=== PATIENT | female | born 1950 | race Caucasian/White ===

== ENCOUNTER 2020-05-18 10:51 | Emergency (ER) | payer MEDICARE, OTHER ==
[2020-05-18 11:10] VITALS: BP 123/53; PULSE 71
--- NOTE | 2020-05-18 11:29 | EDM.PDOC ---
ED HPI GENERAL MEDICAL PROBLEM - General Chief Complaint: Upper Extremity Injury/Pain Stated Complaint: R SHOULDER PAIN Time Seen by Provider: 05/18/20 10:59 Source of Information: Reports: Patient, RN Notes Reviewed History Limitations: Reports: No Limitations - History of Present Illness INITIAL COMMENTS - FREE TEXT/NARRATIVE: Patient is a 70-year-old female presenting to the emergency department with her with complaints of right shoulder pain. She describes tightness and shooting pain to her right shoulder rating into her right upper back. This morning she was unable to lift her arm, however she took Flexeril 10 mg as well as ibuprofen and Tylenol and states that the symptoms are improving. She is able to lift her arm at this time. She denies any known injury, however on Monday she was riding horse and states that she threw the saddle up on the horse a number of times. Symptoms began the next day. She states that she has had problems with pain to her right shoulder off and on for about the last 9 months. Denies any previous surgeries on the shoulder. She denies any chest pain or shortness of breath. Right Shoulder Pain Score (Numeric/FACES): 7 - Related Data Allergies Allergy/AdvReac Type Severity Reaction Status Date / Time environmental Allergy Itching Uncoded 05/18/20 11:10 Home Meds: Home Meds Levothyroxine 50 mcg PO DAILY 08/05/15 [History] Sertraline HCl [Zoloft] 20 mg PO DAILY 08/05/15 [History] Rosuvastatin [Crestor] 5 mg PO DAILY 05/18/20 [History] predniSONE [Prednisone] 20 mg PO ASDIRECTED #9 tablet 05/18/20 [Rx] Past Medical History HEENT History: Reports: Impaired Vision Cardiovascular History: Reports: High Cholesterol Respiratory History: Reports: Asthma Endocrine/Metabolic History: Reports: Hypothyroidism - Infectious Disease History Infectious Disease History: Reports: Novel Coronavirus - Past Surgical History GI Surgical History: Reports: Other (See Below) Other GI Surgeries/Procedures: anal canal repair Female Surgical History: Reports: Hysterectomy Musculoskeletal Surgical History: Reports: Other (See Below) Other Musculoskeletal Surgeries/Procedures:: bunion removal Social & Family History - Family History Family Medical History: No Pertinent Family History Cardiac: Reports: [place] Neurological: Reports: CVA Oncologic: Reports: Breast - Tobacco Use Tobacco Use Status *Q: Never Tobacco User Second Hand Smoke Exposure: No - Caffeine Use Caffeine Use: Reports: None - Recreational Drug Use Recreational Drug Use: No Review of Systems - Review of Systems Review Of Systems: See Below Constitutional: Reports: No Symptoms Eyes: Reports: No Symptoms Ears: Reports: No Symptoms Nose: Reports: No Symptoms Mouth/Throat: Reports: No Symptoms Respiratory: Reports: No Symptoms Cardiovascular: Reports: No Symptoms GI/Abdominal: Reports: No Symptoms Genitourinary: Reports: No Symptoms Musculoskeletal: Reports: Shoulder Pain (Right) Skin: Reports: No Symptoms Neurological: Reports: No Symptoms Psychiatric: Reports: No Symptoms ED EXAM, GENERAL - Physical Exam Exam: See Below General Appearance: Alert, WD/WN, No Apparent Distress Respiratory/Chest: No Respiratory Distress, Lungs Clear, Normal Breath Sounds, No Accessory Muscle Use, Chest Non-Tender Cardiovascular: Normal Peripheral Pulses, Regular Rate, Rhythm, No Edema, No Gallop, No JVD, No Murmur, No Rub Extremities: Normal Inspection, Limited Range of Motion (Able to lift arm to shoulder height. Further range of motion limited due to pain.), Other (Mild tenderness to palpation overlying the right AC joint and to the right trapezius muscle.) Neurological: Alert, Oriented, CN II-XII Intact, Normal Cognition, Normal Gait, Normal Reflexes, No Motor/Sensory Deficits Psychiatric: Normal Affect, Normal Mood Skin Exam: Warm, Dry, Intact, Normal Color, No Rash Course - Vital Signs Last Recorded V/S: Last Vital Signs Temp 97.3 F 05/18/20 11:08 Pulse 71 05/18/20 11:08 Resp 18 05/18/20 11:08 BP 123/53 L 05/18/20 11:08 Pulse Ox 95 05/18/20 11:08 - Re-Assessments/Exams Free Text/Narrative Re-Assessment/Exam: 05/18/20 12:05 X-ray of the right shoulder shows mild degenerative changes within the acromioclavicular joint. There is nothing acute otherwise appreciated. Patient does appreciate tenderness to palpation over the AC joint. States that she has a history of ulcers, therefore we will forego NSAIDs. I will send a short prescription for prednisone. She has Flexeril at home. She continues to have recurrence of pain in the shoulder, recommend follow-up with orthopedics. Discharge instructions as documented. Departure - Departure Time of Disposition: 12:06 Disposition: Home, Self-Care 01 Condition: Good Clinical Impression: Shoulder pain, right Qualifiers: Chronicity: acute Qualified Code(s): M25.511 - Pain in right shoulder - Discharge Information *PRESCRIPTION DRUG MONITORING PROGRAM REVIEWED*: No *COPY OF PRESCRIPTION DRUG MONITORING REPORT IN PATIENT KANDI: No Prescriptions: predniSONE [Prednisone] 20 mg PO ASDIRECTED #9 tablet Instructions: Shoulder Pain Referrals: Bonita Rosales [facility] [Primary Care Provider] - Forms: ED Department Discharge Additional Instructions: You were seen in the emergency department today for right shoulder pain. X-rays are completed and did show some degeneration of your acromioclavicular joint which corresponds with where your pain is located. You have been sent a prescription for prednisone to help decrease inflammation. Recommend that you continue to use the Flexeril every 6 hours as needed for muscle spasms. You may apply heat to the area intermittently as needed. If you continue to experience recurrence of right-sided shoulder pain, recommend follow-up with orthopedics. Return to ER as needed. Sepsis Event Note (ED) - Evaluation Sepsis Screening Result: No Definite Risk - Focused Exam Vital Signs: Vital Signs Temp Pulse Resp BP Pulse Ox 05/18/20 11:08 97.3 F 71 18 123/53 L 95
--- NOTE | 2020-05-18 11:52 | CR ---
Right shoulder: 3 views of the right shoulder were obtained. Comparison: No previous study. Slight degenerative change is seen within the superior acromioclavicular joint. Glenohumeral joint appears within normal limits. No acute fracture, dislocation or other bony abnormality is appreciated. Impression: 1. Mild degenerative change within the acromioclavicular joint. 2. Nothing acute is otherwise seen on right shoulder study. Diagnostic code #1
== END 2020-05-18 12:14 | disposition home or self-care (01) ==
LOC: JD.ED 10:51
DX: M25.511 Pain in right shoulder (principal); E78.00 Pure hypercholesterolemia, unspecified; J45.909 Unspecified asthma, uncomplicated; E03.9 Hypothyroidism, unspecified; Z91.048 Other nonmedicinal substance allergy status; Z79.899 Other long term (current) drug therapy
CPT/HCPCS: 73030-26-RT; 73030-RT; 99283; 99283-25

== ENCOUNTER 2021-02-22 14:58 | Emergency (ER) | payer MEDICARE ==
[2021-02-22 16:21] VITALS: BP 127/73; PULSE 55
--- NOTE | 2021-02-22 16:35 | EDM.PDOC ---
ED HPI GENERAL MEDICAL PROBLEM - General Chief Complaint: Lower Extremity Injury/Pain Stated Complaint: KNEE PAIN Time Seen by Provider: 02/22/21 16:12 Source of Information: Reports: Patient, RN Notes Reviewed History Limitations: Reports: No Limitations - History of Present Illness INITIAL COMMENTS - FREE TEXT/NARRATIVE: Patient is a 71-year-old female who presents to the ER for left knee pain and swelling. States that she does a lot of walking, she thinks she may have torn or hurt her meniscus a few years ago, and wonders if this did not flared up. She notes increased pain and swelling since last night. No numbness or tingling distal to the pain. There is visible swelling noted from left to right, which appears to be in the superior left knee. Patient can move her knee however it is very painful to do so. States that she can walk on the knee as well but has been painful to do so. Has been using Tylenol and ibuprofen for pain management. Patient denies any other sick-like symptoms, fever/chills, cough/shortness of breath, nausea/vomiting/diarrhea. 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, NSAIDS Left Knee Pain Score (Numeric/FACES): 7 - Related Data Allergies Allergy/AdvReac Type Severity Reaction Status Date / Time environmental Allergy Itching Uncoded 05/18/20 11:10 Home Meds: Home Meds Levothyroxine 50 mcg PO DAILY 08/05/15 [History] Sertraline HCl [Zoloft] 20 mg PO DAILY 08/05/15 [History] Rosuvastatin [Crestor] 5 mg PO DAILY 05/18/20 [History] Hydrocodone/Acetaminophen [HYDROcodone-Acetaminophen 5-325 MG] 1 each PO Q6H PRN #12 tablet 02/22/21 [Rx] Past Medical History HEENT History: Reports: Impaired Vision Cardiovascular History: Reports: High Cholesterol Respiratory History: Reports: Asthma Endocrine/Metabolic History: Reports: Hypothyroidism - Infectious Disease History Infectious Disease History: Reports: Novel Coronavirus - Past Surgical History GI Surgical History: Reports: Other (See Below) Other GI Surgeries/Procedures: anal canal repair Female Surgical History: Reports: Hysterectomy Musculoskeletal Surgical History: Reports: Other (See Below) Other Musculoskeletal Surgeries/Procedures:: bunion removal Social & Family History - Family History Family Medical History: No Pertinent Family History Cardiac: Reports: [place] Neurological: Reports: CVA Oncologic: Reports: Breast - Tobacco Use Tobacco Use Status *Q: Former Tobacco User Used Tobacco, but Quit: Yes Month/Year Tobacco Last Used: 40 - Caffeine Use Caffeine Use: Reports: Soda, Tea Other Caffeine Use: cafeinbe free - Recreational Drug Use Recreational Drug Use: No Review of Systems - Review of Systems Review Of Systems: Comprehensive ROS is negative, except as noted in HPI. ED EXAM, GENERAL - Physical Exam Exam: See Below Exam Limited By: No Limitations General Appearance: Alert, WD/WN, No Apparent Distress Respiratory/Chest: No Respiratory Distress, Lungs Clear, Normal Breath Sounds, No Accessory Muscle Use, Chest Non-Tender Cardiovascular: Normal Peripheral Pulses, Regular Rate, Rhythm, No Edema Peripheral Pulses: 2+: Dorsalis Pedis (L), Dorsalis Pedis (R) Extremities: Normal Range of Motion (slow, but has normal ROM), Normal Capillary Refill, Joint Swelling (there is superior left knee swelling) Neurological: Alert, Oriented, Normal Cognition, No Motor/Sensory Deficits Psychiatric: Normal Affect, Normal Mood Skin Exam: Warm, Dry, Intact, Normal Color, No Rash Course - Vital Signs Last Recorded V/S: Last Vital Signs Temp 97.6 F 02/22/21 16:18 Pulse 55 L 02/22/21 16:18 Resp 20 02/22/21 16:18 BP 127/73 02/22/21 16:18 Pulse Ox 97 02/22/21 16:18 - Orders/Labs/Meds Orders: Active Orders 24 hr Category Date Time Status Communication Order [RC] ASDIRECTED Care 02/22/21 16:12 Active Communication Order [RC] ASDIRECTED Care 02/22/21 16:12 Active Communication Order [RC] ROUTINE Care 02/22/21 16:12 Active Knee 3V Lt [CR] Stat Exams 02/22/21 16:12 Ordered DME for Discharge [COMM] Routine Oth 02/22/21 16:50 Ordered - Re-Assessments/Exams Free Text/Narrative Re-Assessment/Exam: 02/22/21 16:20 Patient presents to the ER for her left knee pain. We will go ahead and get x- rays initially for evaluation. 02/22/21 16:56 Knee x-ray has been performed and reviewed by myself and Dr. Hung, no acute bony injury. Patient will be put in a knee immobilizing brace to prevent further injury and/or stabilize her left knee. She will be given some pain medication as well for ongoing pain management over the next few days. Departure - Departure Time of Disposition: 16:57 Disposition: Home, Self-Care 01 Condition: Good Clinical Impression: Swelling of left knee joint Left knee pain Qualifiers: Chronicity: acute Qualified Code(s): M25.562 - Pain in left knee - Discharge Information *PRESCRIPTION DRUG MONITORING PROGRAM REVIEWED*: Yes *COPY OF PRESCRIPTION DRUG MONITORING REPORT IN PATIENT KANDI: No Prescriptions: Hydrocodone/Acetaminophen [HYDROcodone-Acetaminophen 5-325 MG] 1 each PO Q6H PRN #12 tablet PRN Reason: Pain Instructions: Acute Knee Pain, Adult, How to Use a Knee Immobilizer, [id number] Forms: ED Department Discharge Additional Instructions: You have been evaluated in the ED for your left knee pain/swelling. Your x-ray demonstrated no acute fractures or bony abnormalities. It is likely that you have aggravated some of the soft tissues, causing some swelling in your left knee. You have been provided with a brace to prevent further injury and/or stabilize the injury you received today. Please use ice as tolerated to the affected area. You may elevate the affected area to provide further relief from swelling. You may take Tylenol 500 mg or ibuprofen 600mg q6 hrs for pain relief. Please do so until you have a tolerable level of pain with activity. Do not exceed 4000mg Tylenol, Do not exceed 3200mg ibuprofen in a 24 hour time period. You were given a prescription for a strong pain medication, hydro codone/acetaminophen 5/325, please take 1 tab every 6 hours as needed for pain not relieved by Tylenol or ibuprofen alone. Please note this does contain Tylenol in it, so do not take more than 4000 mg in a 24-hour time span. These medications can be addictive, so please take as few as possible to achieve adequate pain control. These meds can also be quite constipating, recommend that you increase your oral fluid intake and take a stool softener like MiraLAX while taking these medications. This medication was electronically sent to the [place] pharmacy located in the [employer]. Please call Ortho for follow-up and further evaluation Dr. Correia is our orthopedic surgeon, his office number is [phone]. Please call and set up an appointment as soon as possible for further management. This would be if your injury does not seem to be getting better in roughly 7 to 10 days time with conservative measures; as it may be warranted for you to have an MRI performed to evaluate the soft tissues. Please return to ED if your symptoms should change or worsen. Sepsis Event Note (ED) - Focused Exam Vital Signs: Vital Signs Temp Pulse Resp BP Pulse Ox 02/22/21 16:18 97.6 F 55 L 20 127/73 97 - My Orders Last 24 Hours: My Active Orders 02/22/21 16:12 Communication Order [RC] ASDIRECTED Communication Order [RC] ASDIRECTED Communication Order [RC] ROUTINE Knee 3V Lt [CR] Stat 02/22/21 16:50 DME for Discharge [COMM] Routine - Assessment/Plan Last 24 Hours: My Active Orders 02/22/21 16:12 Communication Order [RC] ASDIRECTED Communication Order [RC] ASDIRECTED Communication Order [RC] ROUTINE Knee 3V Lt [CR] Stat 02/22/21 16:50 DME for Discharge [COMM] Routine
--- NOTE | 2021-02-22 17:04 | CR ---
Left knee: AP, lateral and sunrise patellar views of the left knee were obtained. Comparison: No prior left knee study is available. Severe joint space narrowing is seen within the medial compartment. Osteophytes are noted off the medial and lateral compartment. Slight chondrocalcinosis is noted within the medial meniscus. Joint effusion is seen. Osteophytes are noted off the patellofemoral joint. Mild joint space narrowing is seen within the medial patellofemoral joint. Impression: 1. Degenerative change as described above. Small joint effusion is also noted. Diagnostic code #2
== END 2021-02-22 17:44 | disposition home or self-care (01) ==
LOC: JD.ED 14:58 → SUPCPDRO 14:58 → JD.ED 17:44
DX: M25.562 Pain in left knee (principal); M25.462 Effusion, left knee; E78.00 Pure hypercholesterolemia, unspecified; E03.9 Hypothyroidism, unspecified; J45.909 Unspecified asthma, uncomplicated; Z87.891 Personal history of nicotine dependence; Z91.048 Other nonmedicinal substance allergy status
CPT/HCPCS: 73562-26-LT; 73562-LT; 99283

== ENCOUNTER 2022-04-11 07:42 | Day surgery (SDC) | payer MEDICARE, OTHER ==
[~2022-04-11 07:42] MED LIST: Acetaminophen 325 MG Tab PO SCH; EPINEPHrine 1 MG/ML SDV ONE; HYDROmorphone 0.5 MG/0.5 ML Syringe IVPUSH PRN; Lactated Ringers 1,000 ML IV SCH; Lidocaine 1% 2 ML ONE; Lidocaine 1%/Sod Bicarbonate in NS 8.4% 1 ML Syringe IDERM PRN; Midazolam 1 MG/ML 2 ML SDV ONE; Ondansetron 4 MG/2 ML SDV IVPUSH PRN; Pregabalin 25 MG Cap PO SCH; Propofol 200 MG/20 ML SDV ONE; Ropivacaine 0.5% 5 MG/ML 30 ML SDV ONE; Sodium Chloride 0.9% 10 ML Syringe FLUSH PRN; Sodium Chloride 0.9% 10 ML Syringe FLUSH SCH; ceFAZolin 2 GM Vial ONE; fentaNYL 100 MCG/2 ML SDV IVPUSH PRN; fentaNYL 100 MCG/2 ML SDV ONE; oxyCODONE ER 10 MG TAB.ER PO SCH
[2022-04-11] MEDS: Vancomycin 1 GM SDV ONE ×2 (09:00→10:25)
[2022-04-11] MEDS: Triamcinolone Acetonide 40 MG/ML 1 ML SDV ONE ×2 (09:00→10:35)
[2022-04-11] MEDS: Morphine 8 MG, EPINEPHrine 0.3 MG, Cefuroxime 750 MG, Ketorolac 30 MG, Sodium Chloride ... PRN ×10 (09:01→10:19)
[2022-04-11] MEDS: Tranexamic Acid 1,000 MG/10 ML Vial ONE ×2 (09:01→10:25)
[2022-04-11] MEDS: Bupivacaine 0.25% 10 ML SDV ONE ×2 (09:01→10:35)
[2022-04-11] MEDS ORDERED: ePHEDrine 50 MG/ML SDV ONE (09:30)
[2022-04-11] MEDS ORDERED: oxyCODONE 5 MG Tab PO ONE (11:28)
[2022-04-11] MEDS ORDERED: Cyclobenzaprine 10 MG Tab PO ONE (11:32)
[2022-04-11 13:37] VITALS: BP 120/70; PULSE 68
== END 2022-04-11 12:50 | disposition home or self-care (01) ==
LOC: JD.SDS 07:42
PROVIDERS: ATTEND Orthopaedic Surgery
DX: M17.0 Bilateral primary osteoarthritis of knee (principal); F41.9 Anxiety disorder, unspecified; D64.9 Anemia, unspecified; M19.90 Unspecified osteoarthritis, unspecified site; K21.9 Gastro-esophageal reflux disease without esophagitis; E03.9 Hypothyroidism, unspecified; E78.5 Hyperlipidemia, unspecified; J45.909 Unspecified asthma, uncomplicated; Z91.048 Other nonmedicinal substance allergy status; Z79.899 Other long term (current) drug therapy; Z79.890 Hormone replacement therapy; Z98.890 Other specified postprocedural states; Z87.891 Personal history of nicotine dependence; Z86.16 Personal history of COVID-19
CPT/HCPCS: 0055T; 20610; 27447; 64415; 73560; 97110; 97116; 97161; A9270; C1713; C1776; J0171; J0690; J0697; J1885; J2250; J2270; J2704; J2795; J3010; J3301; J3370; J3490; J7120; 01402; 64447; 99100

== ENCOUNTER 2023-07-06 13:11 | Emergency (ER) | payer MEDICARE, OTHER ==
[2023-07-06 14:00] LABS: BASOPHILS ABSOLUTE AUTO 0.1 K/mm3 (0.0-0.2); BASOPHILS PERCENT AUTO 1.3 % (0.0-1.0); EOSINOPHILS ABSOLUTE AUTO 0.1 K/mm3 (0.0-0.4); EOSINOPHILS PERCENT AUTO 1.1 % (0.0-6.0); HEMATOCRIT 36.7 % (37.0-47.0); HEMOGLOBIN 12.4 gm/dl (12.0-16.0); IMMATURE GRAN ABSOLUTE AUTO 0.01 K/mm3 (0.00-0.05); IMMATURE GRAN PERCENT AUTO 0.2 % (0.0-0.4); LYMPHOCYTES ABSOLUTE AUTO 1.9 K/mm3 (1.0-4.8); LYMPHOCYTES PERCENT AUTO 35.4 % (24.0-44.0); MEAN CORPUSCULAR HEMOGLOBIN 31.2 pg (28.0-32.0); MEAN CORPUSCULAR HGB CONC 33.8 g/dl (32.0-36.0); MEAN CORPUSCULAR VOLUME 92.4 fl (83.0-99.0); MONOCYTES ABSOLUTE AUTO 0.5 K/mm3 (0.0-0.8); MONOCYTES PERCENT AUTO 8.3 % (0.0-8.0); NEUTROPHILS ABSOLUTE AUTO 2.9 K/mm3 (1.8-7.7); NEUTROPHILS PERCENT AUTO 53.7 % (41.0-71.0); PLATELET COUNT,PLT 201 K/mm3 (150-400); RED BLOOD CELL COUNT 3.97 M/mm3 (4.10-5.30)
[2023-07-06 14:06] LABS: APPEARANCE,URINE CLEAR (Clear); BILIRUBIN,URINE NEGATIVE (Negative); COLOR,URINE YELLOW (Yellow); GLUCOSE,URINE NEGATIVE (Negative); KETONES,URINE NEGATIVE (Negative); LEUKOCYTE ESTERASE,URINE NEGATIVE (Negative); NITRITE,URINE NEGATIVE (Negative); OCCULT BLOOD,URINE NEGATIVE (Negative); PROTEIN,URINE NEGATIVE (Negative); UROBILINOGEN,URINE 0.2 (0.2-1.0)
[2023-07-06] MEDS: Digoxin 500 MCG/2 ML Amp IVPUSH ONE (14:13)
[2023-07-06 14:24] LABS: A/G RATIO 1.2 (1-2); ALBUMIN 3.7 g/dl (3.4-5.0); ANION GAP 10.1 (5-15); BILIRUBIN TOTAL 0.4 mg/dL (0.2-1.0); CALCIUM 8.8 mg/dL (8.5-10.1); CREATININE 0.9 mg/dL (0.55-1.02); EST CRCL DRUG DOSING (CG) 48.6 mL/min; POTASSIUM,K 4.1 mEq/L (3.5-5.1); PROTEIN TOTAL,TP 6.7 g/dl (6.4-8.2)
[2023-07-06] MEDS: Sodium Chloride 0.9% 10 ML Syringe FLUSH PRN (14:51)
[2023-07-06 16:08] VITALS: BP 136/54; PULSE 56
== END 2023-07-06 16:00 | disposition home or self-care (01) ==
LOC: JD.ED 13:11
DX: I47.10 Supraventricular tachycardia, unspecified (principal); E78.00 Pure hypercholesterolemia, unspecified; E03.9 Hypothyroidism, unspecified; Z86.16 Personal history of COVID-19; Z79.899 Other long term (current) drug therapy; Z91.09 Other allergy status, other than to drugs and biological substances
CPT/HCPCS: 36415; 71046; 80053; 81003; 83735; 84484; 85025; 93005; 93246; 96374; 99285; J1160; J3490; 93010; 99284

== ENCOUNTER 2024-03-19 17:07 | Emergency (ER) | payer MEDICARE, OTHER | END 2024-03-19 19:14 | disposition home or self-care (01) | LOC: JD.ED 17:07 | DX: R07.89 Other chest pain (principal); R07.2 Precordial pain; E78.00 Pure hypercholesterolemia, unspecified; E03.9 Hypothyroidism, unspecified; Z91.09 Other allergy status, other than to drugs and biological substances; Z79.890 Hormone replacement therapy; Z79.899 Other long term (current) drug therapy; Z86.16 Personal history of COVID-19; Z90.710 Acquired absence of both cervix and uterus | CPT/HCPCS: 36415; 84484; 85379; 93005; 93010; 99284; 99285 ==

== ENCOUNTER 2024-04-02 06:34 | Day surgery (SDC) | payer MEDICARE, OTHER ==
[~2024-04-02 06:34] MED LIST changes: -Acetaminophen 325 MG Tab PO SCH; -EPINEPHrine 1 MG/ML SDV ONE; -HYDROmorphone 0.5 MG/0.5 ML Syringe IVPUSH PRN; -Lidocaine 1% 2 ML ONE; -Lidocaine 1%/Sod Bicarbonate in NS 8.4% 1 ML Syringe IDERM PRN; -Midazolam 1 MG/ML 2 ML SDV ONE; -Ondansetron 4 MG/2 ML SDV IVPUSH PRN; -Pregabalin 25 MG Cap PO SCH; -Propofol 200 MG/20 ML SDV ONE; -Ropivacaine 0.5% 5 MG/ML 30 ML SDV ONE; -ceFAZolin 2 GM Vial ONE; -fentaNYL 100 MCG/2 ML SDV IVPUSH PRN; -fentaNYL 100 MCG/2 ML SDV ONE; -oxyCODONE ER 10 MG TAB.ER PO SCH
[2024-04-02] MEDS: Lactated Ringers 1,000 ML IV SCH (06:45)
[2024-04-02] MEDS ORDERED: Propofol 200 MG/20 ML SDV ONE (06:54)
[2024-04-02] MEDS ORDERED: Lidocaine 1% 4 ML ONE (06:55)
[2024-04-02 09:35] VITALS: BP 130/67; PULSE 65
== END 2024-04-02 08:35 | disposition home or self-care (01) ==
LOC: JD.SDS 06:34
PROVIDERS: ATTEND Surgery
DX: K21.9 Gastro-esophageal reflux disease without esophagitis (principal); K44.9 Diaphragmatic hernia without obstruction or gangrene; Q43.8 Other specified congenital malformations of intestine; E78.00 Pure hypercholesterolemia, unspecified; E03.9 Hypothyroidism, unspecified; J45.909 Unspecified asthma, uncomplicated; Z79.890 Hormone replacement therapy; Z79.899 Other long term (current) drug therapy
CPT/HCPCS: 43239; 88305; J2704; J7120; 00731; 99100; J3490